=== PATIENT | female | born 1965 | race Asian ===

== ENCOUNTER 2019-03-26 11:20 | Outpatient (CLI) | payer OTHER | END 2019-03-26 20:22 | disposition home or self-care (01) | LOC: LAB 11:20 | PROVIDERS: Family Medicine | DX: E78.5 Hyperlipidemia, unspecified (principal); I10 Essential (primary) hypertension | CPT/HCPCS: 80053; 80061; 84443; 84481 ==

== ENCOUNTER 2022-03-09 08:35 | Outpatient (CLI) | payer OTHER | END 2022-03-09 23:56 | disposition home or self-care (01) | LOC: MAMMO 08:35 | PROVIDERS: ATTEND Nurse Practitioner Family | DX: Z12.31 Encounter for screening mammogram for malignant neoplasm of breast (principal) ==